=== PATIENT | female | born 1960 | race Caucasian/White ===

== ENCOUNTER 2021-02-19 06:46 | Observation (INO) | payer OTHER ==
[~2021-02-19] VITALS: Ht 157.5 cm; Wt 140.0 kg
[2021-02-19 06:47] VITALS: BP 127/54
[2021-02-19 07:41] LABS: ABSOLUTE LYMPHOCYTES 0.8 thou/uL (0.8-5.3); ABSOLUTE MONOCYTES 0.2 thou/uL (0.0-1.2); ABSOLUTE NEUTROPHILS 1.9 thou/uL (1.6-8.1); BASOPHILS 0.3 %; EOSINOPHILS 0.5 %; HEMATOCRIT 36.5 % (37.0-47.0); HEMOGLOBIN 12.2 gm/dL (12.0-15.0); LYMPHOCYTES 27.5 %; MCH 28.6 pg (26.0-34.0); MCHC 33.3 g/dL (28.0-37.0); MCV 85.7 fL (80.0-100.0); MONOCYTES 7.8 %; MPV 8.6 fl. (7.2-11.1); NUCLEATED RBCS 0 /100WBC; PLATELET COUNT* 126 thou/uL (150-400); POLYS 63.9 %; RBC 4.26 mil/uL (4.20-5.00); RDW-CV 13.9 % (10.5-14.5)
[2021-02-19 07:58] LABS: CALCIUM 8.1 mg/dL (8.5-10.1); POTASSIUM 3.7 mmol/L (3.5-5.1)
[2021-02-19 08:09] LABS: ALBUMIN 3.3 g/dL (3.4-5.0); MAGNESIUM 2.2 mg/dL (1.8-2.4); TOTAL BILIRUBIN 0.3 mg/dL (<0.1-1.0); TOTAL PROTEIN 7.4 g/dL (6.4-8.2)
--- NOTE | 2021-02-19 10:26 | EKG ---
[place] [address] ELECTROCARDIOGRAM REPORT Name: SHAVON MARKS Room: [place] [address] ADM IN M.R.#: [id number] Admission: 02/19/21 Attend Phys: Jayden Purcell Discharge: Date of : 62 Date of Service: 02/19/21 0645 Report #: [id number] THIS REPORT FOR: //name// [facility] ED Test Date: 2021-02-19 Test Time: 06:45:08 Pat Name: SHAVON MARKS Department: Room: [facility] Gender: F Manufacturing Project Manager: BXIONG : 1960 Requested By: Sun Gonzales Order Number: [id number] MD: Jas Zabala Measurements Intervals [place] Rate: 52 P: 50 FL: 165 QRS: 15 QRSD: 90 T: 77 QT: 501 QTc: 466 Interpretive Statements Sinus rhythm No previous ECG available for comparison Electronically Signed On 02-19-2021 10:26:42 CDT by Jas Zabala [email or web address] <ELECTRONICALLY SIGNED> By: Jas Zabala MD, FACC 02/19/21 1026 0645 0645 Jas Zabala MD, [facility] /EPI
[2021-02-19 10:35] LABS: URINE BILIRUBIN NEGATIVE (Negative); URINE BLOOD NEGATIVE (Negative); URINE CLARITY CLEAR; URINE COLOR STRAW; URINE GLUCOSE-RANDOM NEGATIVE (Negative); URINE KETONES NEGATIVE (Negative); URINE LEUKOCYTES-REFLEX NEGATIVE (Negative); URINE NITRITE-REFLEX NEGATIVE (Negative); URINE PROTEIN NEGATIVE (Negative); URINE SPECIFIC GRAVITY <= 1.005 (1.005-1.030); URINE UROBILINOGEN 0.2 E.U./dl (0.2-1.0)
[2021-02-19 10:46] VITALS: BP 122/72
[2021-02-19 11:52] VITALS: BP 141/65
[2021-02-19 12:27] VITALS: BP 161/94
[2021-02-19 12:28] VITALS: BP 147/84
[2021-02-19] MEDS ORDERED: SUPER THERAVIT1 EACH PO (12:50)
--- NOTE | 2021-02-19 18:02 | NUR ---
Pt admitted late this morning from ED. Pt reports she believed she had COVID for approx 1 week since loss of taste/smell, and dtr and grandchildren recently tested positive for COVID. Pt also reports her appetite has been low and thinks she may have become dehydrated, leading to syncopal episodes. ED RN reports pt was orthostatic, received 2L IVF in ED. Pt not orthostatic since arrival to unit. Currently receiving IVF @ 100 ml/hr X1 bag per physician order. Up with standby assist multiple times to BR for voiding w/o difficulty, has steady gait, denies dizziness or lightheadedness with activity. Denies pain. Tested positive for COVID in ED. On room air. Denies SOA. VSS. Takes multivitamin at home. Cardiology consult ordered. Will continue to monitor.
[2021-02-19 21:50] VITALS: BP 146/74
[2021-02-20 04:00] VITALS: BP 141/73
[2021-02-20 04:53] LABS: HEMATOCRIT 37.1 % (37.0-47.0); HEMOGLOBIN 12.5 gm/dL (12.0-15.0); MCH 28.8 pg (26.0-34.0); MCHC 33.7 g/dL (28.0-37.0); MCV 85.4 fL (80.0-100.0); RBC 4.35 mil/uL (4.20-5.00); WBC 3.3 thou/uL (4.0-11.0)
[2021-02-20 05:02] LABS: CALCIUM 8.5 mg/dL (8.5-10.1); CREATININE 0.8 mg/dL (0.6-1.3); POTASSIUM 3.6 mmol/L (3.5-5.1)
--- NOTE | 2021-02-20 06:16 | NUR ---
PT AO X4 ON ROOM AIR SATTING APPROPRIATELY. SHE IS UP STANDBY ASSIST TO TOILET AND STATES SHE IS HAVING OCCASIONAL DIZZINESS. PT COMPLETED FLUIDS. VSS, PT SINUS KATHRYN ON MONITOR. CALL LIGHT IN REACH FOR PT SAFETY
[2021-02-20 08:46] VITALS: BP 151/90
--- NOTE | 2021-02-20 11:44 | 2DMMODE ---
[place] [address] 2 D/M-MODE ECHOCARDIOGRAM Name: SHAVON MARKS Room: [address] IN [place].#: [id number] Admission: 02/19/21 Attend Phys: Jayden Purcell Discharge: Date of : 62 Date of Service: 02/20/21 1144 Report #: [id number] THIS REPORT FOR: cc: Ailyn Jarrett Sarah Anne FNP Blick, David R. MD [facility] ~ APPROVED REPORT Study performed: 02/20/2021 09:40:36 EXAM: Comprehensive 2D, Doppler, and color-flow Echocardiogram Patient Location: In-Patient Room #: 108 Status: routine BSA: 1.64 HR: 53 bpm BP: 151/90 mmHg Rhythm: NSR Other Information Study Quality: Good Indications Syncope 2D Dimensions IVSd: 9.10 (7-11mm) LVOT Diam: 20.84 (18-24mm) LVDd: 44.67 mm PWd: 9.30 (7-11mm) Ascending Ao: 33.91 (22-36mm) LVDs: 25.66 (25-40mm) Aortic Root: 31.58 mm Volumes Left Atrial Volume (Systole) LA ESV Index: 26.50 mL/m2 Aortic Valve AoV Peak Sanju.: 1.41 m/s AO Peak Gr.: 7.97 mmHg LVOT Max P.46 mmHg AO Mean Gr.: 4.25 mmHg LVOT Mean P.53 mmHg LVOT Max V: 1.45 m/s AO V2 VTI: 29.32 cm LVOT Mean V: 0.85 m/s KIAN (VTI): 3.54 cm2 LVOT V1 VTI: 30.44 [place] [address] 2 D/M-MODE ECHOCARDIOGRAM Name: SHAVON MARKS Room: [address] IN ..#: [id number] Admission: 02/19/21 Attend Phys: Jayden Purcell Discharge: Date of : 62 Date of Service: 02/20/21 1144 Report #: [id number] Mitral Valve E/A Ratio: 0.97 MV Decel. Time: 223.77 ms MV E Max Sanju.: 0.70 m/s MV PHT: 64.89 ms MVA (PHT): 3.39 cm2 TDI E/Lateral E': 7.78 E/Medial E': 8.75 Medial E' Sanju.: 0.08 m/s Lateral E' Sanju.: 0.09 m/s Pulmonary Valve PV Peak Sanju.: 0.99 m/s PV Peak Gr.: 3.90 mmHg Left Ventricle The left ventricle is normal size. There is normal LV segmental wall motion. There is normal left ventricular wall thickness. Left ventricular systolic function is normal. The left ventricular ejection fraction is within the normal range. LVEF is 60-65%. The left ventricular diastolic function is normal. Right Ventricle Right ventricle is mildly dilated. The right ventricular systolic function is normal. Atria The left atrium size is normal. Right atrium is mildly dilated. Aortic Valve Mild aortic valve sclerosis. Trace aortic regurgitation. There is no aortic valvular stenosis. Mitral Valve The mitral valve is normal in structure. Trace mitral regurgitation. No evidence of mitral valve stenosis. Tricuspid Valve The tricuspid valve is normal in structure. Unable to assess PA pressure. Trace tricuspid regurgitation. Pulmonic Valve The pulmonary valve is normal in structure. [place] [address] 2 D/M-MODE ECHOCARDIOGRAM Name: SHAVON MARKS Room: [address] IN [facility]#: [id number] Admission: 02/19/21 Attend Phys: Jayden Purcell Discharge: Date of : 62 Date of Service: 02/20/21 1144 Report #: [id number] Great Vessels The aortic root is normal in size. IVC is normal in size and collapses >50% with inspiration. Pericardium There is no pericardial effusion. <Conclusion> Left ventricular systolic function is normal. The left ventricular ejection fraction is within the normal range. <ELECTRONICALLY SIGNED> By: Kye Chamberlain MD, FACC 02/20/21 1144 1144 1144 Kye Chamberlain MD, FACC /INF
[2021-02-20] MEDS ORDERED: DOXYCYCLINE 10100 MG PO (13:12)
--- NOTE | 2021-02-20 13:31 | CON ---
[address] [address] CONSULTATION Name: SHAVON MARKS Room: [address] IN [place].#: [id number] Admission: 02/19/21 Attend Phys: Unruly Mirza Discharge: Date of : 62 Report #: [id number] THIS REPORT FOR: cc: Ailyn Jarrett Sarah Anne FNP Blick, David R. MD [facility] ~ cc: AILYN JARRETT DATE OF CONSULTATION: 02/20/2021 CARDIOLOGY CONSULTATION HISTORY OF PRESENT ILLNESS: The patient is a 60-year-old white female who I was asked to see in the hospital today after she had a syncopal spell. The patient has no previous cardiac history. She has never been admitted to [place] before. I have no old records. There are no family members available. She recently was exposed to COVID by her grandkids. She has not been vaccinated. Recently, she lost her sense of taste and smell. Yesterday, she was at home, when she stood up, she felt lightheaded and apparently fell to the ground. She did not hurt herself. There is no seizure activity. Her family members called EMS. She was brought here to [facility] and admitted. She denied any recent vomiting, diarrhea or bleeding. She denied any seizure activity, biting her tongue or incontinence or loss of bowel or bladder function. She denied any recent headaches. She stays very active. She runs marathons. No chest pain, shortness of breath, palpitations or peripheral edema. PAST MEDICAL HISTORY: She has had a bunion removed. She apparently had a carotid Doppler study in the past. She has had elevated blood pressure, but she is currently on no medications. ALLERGIES: SHE HAD PREVIOUS INTOLERANCE TO STEROIDS. FAMILY HISTORY: Sister has a pacemaker. SOCIAL HISTORY: She is , lives in [place] with her . She works cleaning homes. No smoking or alcohol abuse. REVIEW OF SYSTEMS: No history of stroke, asthma, liver disease, kidney disease, cancer, psychiatric illness or chronic skin condition. PHYSICAL EXAMINATION: GENERAL: Revealed a middle-aged female who appeared in no distress, lying in bed. VITAL SIGNS: Her blood pressure was 140/80, pulse is 70. [place] [address] CONSULTATION Name: SHAVON MARKS Room: [address]#: [id number] Admission: 02/19/21 Attend Phys: Unruly Mirza Discharge: Date of : 62 Report #: [id number] HEENT: She was anicteric. Conjunctivae pink. Mucous membranes moist. NECK: Veins were not distended. No carotid bruits. Neck is supple. CHEST: Clear to auscultation. CARDIAC: Regular rate and rhythm without murmur. ABDOMEN: Soft. EXTREMITIES: Had no edema. Posterior tibial pulse 1+ bilaterally. SKIN: Cool and dry. NEUROLOGIC: Nonfocal. IMAGING DATA: There is no ECG available at this time, although on the monitor, the patient appears to be in a sinus rhythm. The patient did have electrocardiogram performed in the Emergency Room yesterday that showed a sinus rhythm, no acute changes. She had a portable chest x-ray in the Emergency Room yesterday that showed normal heart size, clear lung veloz. She had a CT scan of the head without contrast that showed no acute abnormality. She had a CT scan of the chest using a PE protocol that showed no pulmonary embolus. Some infiltrates were noted. She apparently had a carotid Doppler study done in the hospital yesterday that showed no significant stenosis. LABORATORY DATA: Her creatinine is 0.8. Liver function studies were normal. High sensitivity troponin was 54. BNP 106. D-dimer was 15. Hemoglobin 12.5. Her COVID antigen stat test was positive. Urinalysis is negative for protein. IMPRESSION AND RECOMMENDATIONS: 1. Syncope. Suspect vasovagal. Recommend echocardiogram. Recommend no cardiac medications at this time. 2. COVID-19 pneumonia. <ELECTRONICALLY SIGNED> By: Kye Chamberlain MD, FACC 02/20/21 1331 0723 [id number] Chamberlain MD, FACC /nt
--- NOTE | 2021-02-20 14:29 | NUR ---
Pt is A&O. Covid positive. No o2. Resides at home with . Independent. No DME. No hx of HH or SNF. Cards following. Anticipate dc either later today or tomorrow. No needs anticipated.
--- NOTE | 2021-02-20 15:15 | NUR ---
WENT OVER D/C PAPERWORK WITH PT. VERBALIZED UNDERSTANDING. EDUCATED ON IMPORTANCE OF FINISHING ABX COURSE WITH RATIONALE. PT AWAITING MATTHEWAND AT THIS TIME. IV AND TELE REMOVED.
== END 2021-02-20 16:03 | disposition home or self-care (01) ==
LOC: M.ERS 06:46 → M.ORTHSURG 08:36 → M.TBA-ER 08:36 → M.ORTHSURG 11:00
PROVIDERS: Emergency Medicine; Internal Medicine; ADMIT Internal Medicine; ATTEND Internal Medicine
DX: U07.1 COVID-19 (principal); R91.8 Other nonspecific abnormal finding of lung field; R55 Syncope and collapse; E86.0 Dehydration; R11.0 Nausea; I10 Essential (primary) hypertension; R00.1 Bradycardia, unspecified; Z79.899 Other long term (current) drug therapy